=== PATIENT | male | born 1965 | race Caucasian/White ===

== ENCOUNTER 2017-03-14 19:42 | Emergency (ER) | payer MEDICAID ==
[2017-03-15 01:23] VITALS: BP 148/89
== END 2017-03-15 01:23 | disposition home or self-care (01) ==
LOC: ED 19:42
DX: S61.213A Laceration without foreign body of left middle finger without damage to nail, initial encounter (principal); W23.0XXA Caught, crushed, jammed, or pinched between moving objects, initial encounter; Y93.89 Activity, other specified; Y92.89 Other specified places as the place of occurrence of the external cause; Y99.8 Other external cause status
CPT/HCPCS: 90715; J0690

== ENCOUNTER 2017-03-16 16:11 | Emergency (ER) | payer OTHER, MEDICAID ==
[~2017-03-16] VITALS: Ht 165.1 cm; Wt 83.5 kg
[2017-03-16 16:33] VITALS: BP 151/62
== END 2017-03-16 18:35 | disposition home or self-care (01) ==
LOC: ED 16:11
DX: S61.213D Laceration without foreign body of left middle finger without damage to nail, subsequent encounter (principal); R03.0 Elevated blood-pressure reading, without diagnosis of hypertension; X58.XXXD Exposure to other specified factors, subsequent encounter

== ENCOUNTER 2017-03-19 16:34 | Emergency (ER) | payer OTHER, MEDICAID ==
[~2017-03-19] VITALS: Ht 162.6 cm; Wt 83.5 kg
[2017-03-19 16:51] VITALS: BP 183/95
== END 2017-03-19 19:00 | disposition home or self-care (01) ==
LOC: ED 16:34
DX: S67.197D Crushing injury of left little finger, subsequent encounter (principal); X58.XXXD Exposure to other specified factors, subsequent encounter

== ENCOUNTER 2017-03-21 10:07 | Emergency (ER) | payer OTHER, MEDICAID ==
[2017-03-21 10:24] VITALS: BP 144/86
== END 2017-03-21 11:58 | disposition home or self-care (01) ==
LOC: ED 10:07
DX: S61.217D Laceration without foreign body of left little finger without damage to nail, subsequent encounter (principal); X58.XXXD Exposure to other specified factors, subsequent encounter
CPT/HCPCS: A4570

== ENCOUNTER 2019-02-09 17:21 | Inpatient (IN) | payer OTHER ==
[~2019-02-09] VITALS: Ht 165.1 cm; Wt 78.0 kg
[2019-02-09 17:28] VITALS: Ht 165.1 cm; Wt 78.0 kg
--- NOTE | 2019-02-09 17:45 | NUR ---
SON BRINGS INDAD FOR C/O NAUSEA/VOMITING/DIARRHE AAND UPSET STOMACH X [address] FOOD. PT ST ON MONITOR AT 119, DENIES CP OR SOB, BUT DOES REPORT ANXIETY. PT DOES ADMIT TO DRINKING ETOH 1 BEER A DAY AND DRINKING A TEQUILA SHOT TO FEEL BETTER. TEACHING DONE ON ETOH ABUSE. RESP EVEN AND UNLABORED, ON RA @99% SKIN W/D/I. PALE IN COLOR, DENIES ANY ACUTE BLEEDING. WAIITNG FOR MSE.
--- NOTE | 2019-02-09 18:15 | NUR ---
DR FRANCO IN ROOM FOR EXAM.
--- NOTE | 2019-02-09 18:37 | NUR ---
IV SL X 2 , IV FLUIDS STARTED ORDERED.
[2019-02-09 18:54] LABS: BASOPHIL % 0.3 % (0-2); PLATELET COUNT 181 x10^3mcL (130-400)
[2019-02-09 18:56] LABS: RED CELL DISTRIBUTION WIDTH 20.8 % (11.5-14.5)
[2019-02-09 19:17] LABS: ALKALINE PHOSPHATASE 135 U/L (46-116); ALT/SGPT 57 U/L (16-63); AST/SGOT 66 U/L (15-37); BILIRUBIN TOTAL 0.7 mg/dL (0.20-1.00); CALCIUM 7.9 mg/dL (8.5-10.1); CARBON DIOXIDE 13.6 mmol/L (21-32); CHLORIDE SERUM 94 mmol/L (98-107); CREATININE SERUM 1.3 mg/dL (0.7-1.3); GFR1 > 60 mL/min; POTASSIUM SERUM 4.1 mmol/L (3.5-5.1); SODIUM SERUM 135 mmol/L (136-145); T3 TOTAL 0.51 ng/mL; TOTAL PROTEIN, SERUM 6.4 g/dL (6.4-8.2)
[2019-02-09 19:21] LABS: ALBUMIN 2.8 g/dL (3.4-5.0); GLUCOSE SERUM 595 mg/dL (74-106)
--- NOTE | 2019-02-09 19:21 | NUR ---
REPORT RECIEVED FROM EDIL JARRELL. PT A&0 X4, SITTING IN POSITION OF COMFORT. FAMILY AT BEDSIDE. CALL LIGHT W/IN REACH. NAD NOTED AT THIS TIME. WILL CONTINUE TO MONITOR.
[2019-02-09 19:40] LABS: rbc morphology (normal/abnorm) ABNORMAL (NORMAL)
[2019-02-09 19:41] LABS: CK-MB 1.7 ng/mL (0-3.6); FREE T4 0.83 ng/dL (0.76-1.46); FREE THYROXINE INDEX 1.8 ug/dL (1.4-4.5)
[2019-02-09 19:55] LABS: C REACTIVE PROTEIN < 0.2 mg/dL (<=0.9)
--- NOTE | 2019-02-09 20:20 | NUR ---
SANDOSTATIN DRIP STARTED AT 50MCG/HR PER MD ORDER
--- NOTE | 2019-02-09 20:24 | NUR ---
ICU REQUESTS TO CALL BACK IN 10MIN TO GIVE REPORT
--- NOTE | 2019-02-09 20:31 | NUR ---
REPORT GIVEN TO CHIQUI JARRELL IN ICU
[2019-02-09 21:22] VITALS: BP 117/64
--- NOTE | 2019-02-09 21:30 | NUR ---
PT OFF FLOOR FOR CT. CONNECTED TO [place] MONITOR AND O2 TANK. CHRYSTAL FLORIAN OFF FLOOR WITH PT.
--- NOTE | 2019-02-09 21:40 | NUR ---
[facility] WITH THE DX OG LOWER GI BLEEDING/DIABETIC KETOACIDOSIS, PT ALERT AND ORIENTED, SKIN WARM AND DRY TO TOUCH. RESPIRATION EVEN AND UNLABORED. PLACED COMFORTABLY IN BED. VITAL SIGNS TAKEN AND RECORDED WITH RHYTHM OF SINUSTACCHYCARDIA AT 112/MIN. PATIENT CLAIMED OF ABDOMINAL PAIN /10, PT ON SANDOSTATIN DRIP, IVF NS BOLUS 1L, 1ST BOTTLE ONGOING. STRATED ON INSULIN DRIP AT 8UNITSPER PROTOCOL . WILL CONTINUE TO MONITOR.
[2019-02-09 21:50] VITALS: BP 126/79
--- NOTE | 2019-02-09 22:00 | NUR ---
PT BACK ON FLOOR FROM CT. PT TOLERATED WELL, AND CONNECTED TO SUPERVISOR COATING.
[2019-02-09 22:10] LABS: CHOLESTEROL/HDL RATIO 3.3
[2019-02-09 22:29] LABS: microscopic required? NO
[2019-02-09 22:30] VITALS: BP 129/76
[2019-02-09 22:35] LABS: UA SPECIFIC GRAVITY 1.015 (1.005-1.035); urine erythrocyte NEGATIVE (NEGATIVE)
[2019-02-09 23:30] VITALS: BP 118/64
--- NOTE | 2019-02-09 23:59 | NUR ---
LAB AT BEDSIDE FOR BLOOD DRAW.
[2019-02-10] VITALS (12 sets, daily range): BP systolic 98–186; BP diastolic 48–104
--- NOTE | 2019-02-10 00:16 | NUR ---
CT SCAN OF THE ABOMEN WITHOUT CONTRAT DONE. USES URINAL FOR BLADDER ELEIMINATION. URINE SPECIMEN COLLECTD FOR UA AND SENT TO LAB. KEPT CLEAN ANBD DRY. WILL CONTINUE TO MONITOR.
--- NOTE | 2019-02-10 00:29 | NUR ---
PT H&H CAME BACK LOW. HGB: 6.1, HCT: 18.4. DR. AGUILAR MADE AWARE. 1 UNIT OF PRBC WILL BE ORDERED.
[2019-02-10 00:40] LABS: CALCIUM 6.6 mg/dL (8.5-10.1); CARBON DIOXIDE 17.4 mmol/L (21-32); CHLORIDE SERUM 110 mmol/L (98-107); CREATININE SERUM 0.9 mg/dL (0.7-1.3); GFR1 > 60 mL/min; GLUCOSE SERUM 337 mg/dL (74-106); POTASSIUM SERUM 4.6 mmol/L (3.5-5.1); SODIUM SERUM 142 mmol/L (136-145)
--- NOTE | 2019-02-10 00:41 | NUR ---
RT AT BEDSIDE FOR EKG.
--- NOTE | 2019-02-10 00:45 | NUR ---
PAGE GATE DR. AGUILAR TO SIGN CONSENT FOR BLOOD TRANSFUSION.
[2019-02-10 00:48] LABS: rbc morphology (normal/abnorm) ABNORMAL (NORMAL)
--- NOTE | 2019-02-10 01:00 | NUR ---
HGB-6.1 DR FOX SAYED ERNESTO MADE AWARE WITH ORDER FOR TYPE AND CROSSMATCH 1UNIT PRBC AND TRANSFUSE. PATIENT SIGNEDCONSENT FOR BLOOD TRANSFUSION.
--- NOTE | 2019-02-10 01:30 | NUR ---
CALLED DR. AGUILAR AGAIN TO COME SIGN BLOOD TRANSFUSION FORM.
--- NOTE | 2019-02-10 02:35 | NUR ---
1 UNIT OF PRBC GIVEN AFTER VERIFICATION BY THE CHARGE NURSE RN. WILL CONTINUE TO MONITOR.
--- NOTE | 2019-02-10 04:20 | NUR ---
LAB AT BEDSIDE FOR BLOOD DRAW.
--- NOTE | 2019-02-10 04:43 | NUR ---
SA=[id number] YYU=[id number], DR DOMINIQUE OROZCO MADE AWARE , AWAITNG FOR NEW ORDER.
--- NOTE | 2019-02-10 04:50 | NUR ---
1 UNIT PRBC COMPLETED.NOADVERSEREACTION NOTED.
[2019-02-10 05:12] LABS: CALCIUM 6.5 mg/dL (8.5-10.1); CARBON DIOXIDE 23.9 mmol/L (21-32); CHLORIDE SERUM 111 mmol/L (98-107); CREATININE SERUM 0.7 mg/dL (0.7-1.3); GFR1 > 60 mL/min; GLUCOSE SERUM 225 mg/dL (74-106); POTASSIUM SERUM 4.3 mmol/L (3.5-5.1); SODIUM SERUM 144 mmol/L (136-145)
--- NOTE | 2019-02-10 05:23 | NUR ---
BLOOD SUGAR-189MG/DL,IVF CHANGED TOR5 1/2NS AT 250ML/HR PER PROTOCOL.
--- NOTE | 2019-02-10 06:25 | NUR ---
BLOOD SGUAR CHECK DONE 225MG/SL,IVF DECREASED TO 150ML/HR PER PROTOCOL.TROP LEVEL-0.455, DR AGUILAR WAS PAGED AWAITNG FOR RETURN CALL.
--- NOTE | 2019-02-10 07:08 | NUR ---
TROPONIN LEVEL-0.455, DR WEIR AWARE WITH ORDER EKG, PT DENIES ANY CHEST PAIN/DISCOMFORT ATTHIS THIS TIME.
--- NOTE | 2019-02-10 07:15 | NUR ---
REPORT RECEIVED FROM CHRYSTAL FLORIAN. PATIENT AWAKE, NO DISTRESS NOTED. IV TO LFA WITH D5 1/2 NS INFUSING 150 ML/HR. RFA WITH INSULIN 8 UNITS/HR PER DKA PROTOCOL AND SANDOSTATIN 25 ML/HR. ANION GAP 9.1, CLOSE X1, DR. WEIR AWARE. HOURLY GLUCOSE CHECKS, LAST 225 AT 0630 AM PER CHRYSTAL FLORIAN. BED LOW, CALL LIGHT WITHIN REACH. WILL MONITOR.
--- NOTE | 2019-02-10 07:15 | NUR ---
SHIFT ASSESSMENT PERFORMED AND DOCUMENTED.
--- NOTE | 2019-02-10 07:42 | NUR ---
BS 179, ADJUSTED INSULIN TO 4U/HR PER DKA PROTOCOL
[2019-02-10 08:32] LABS: CALCIUM 6.4 mg/dL (8.5-10.1); CARBON DIOXIDE 25.1 mmol/L (21-32); CHLORIDE SERUM 111 mmol/L (98-107); CREATININE SERUM 0.6 mg/dL (0.7-1.3); GFR1 > 60 mL/min; GLUCOSE SERUM 181 mg/dL (74-106); POTASSIUM SERUM 3.7 mmol/L (3.5-5.1); SODIUM SERUM 144 mmol/L (136-145)
--- NOTE | 2019-02-10 09:00 | NUR ---
DR. LÓPEZ AT BEDSIDE EVALUATING PATIENT. PLAN FOR REGLAN AND EGD, DR. LÓPEZ TO PLACE ORDERS.
--- NOTE | 2019-02-10 10:00 | NUR ---
DR. LÓPEZ AT BEDSIDE PERFORMING EGD.
[2019-02-10 10:28] LABS: rbc morphology (normal/abnorm) ABNORMAL (NORMAL)
--- NOTE | 2019-02-10 10:45 | NUR ---
PRICING INTERN AT BEDSIDE DOING ECHO
--- NOTE | 2019-02-10 10:45 | NUR ---
PATIENT'S ANION GAP NOW 8, CLOSED X2. CHARGE NURSE CHERYL INFORMED. AWAITING ORDERS PER DKA PROTOCOL.
--- NOTE | 2019-02-10 11:25 | NUR ---
DR HESTER AT BEDSIDE TO ASSESS PATIENT. UPDATES PROVIDED BY NURSING.
--- NOTE | 2019-02-10 11:39 | NUR ---
DR. ALCALA AND DR. WEIR AT BEDSIDE TO EVALUATE PATIENT.
--- NOTE | 2019-02-10 11:53 | NUR ---
SHIFT ASSESSMENT PERFORMED AND DOCUMENTED. FAMILY AND SOCIAL WORK AT BEDSIDE. PATIENT IN NO DISTRESS. D51/2NS 150 ML/HR INFUSING TO LFA WITHOUT COMPLICATIONS. SANDOSTATIN 25 ML/HR AND INSULIN 4 U/HR PER DKA PROTOCOL INFUSIONING TO RFA. BED LOW, CALL LIGHT WITHITN REACH. WILL MONITOR.
--- NOTE | 2019-02-10 12:04 | NUR ---
CHRYSTAL KC, DISCONTINUED INSULIN DRIP AND D51/2NS PER DKA PROTOCOL.
--- NOTE | 2019-02-10 12:45 | NUR ---
BLOOD TRANSFUSION STARTED PER MD ORDER. VSS TEMP 98.6, HR 97, BP 109/55, RR 19, O2 SAT 100% ON 2LNC. PATIENT IN NO DISTRESS, EATING LUNCH, FAMILY AT BEDSIDE. WILL MONITOR. INITIAL RATE 100 ML/HR.
--- NOTE | 2019-02-10 13:02 | NUR ---
15 MINUTE CHECK ON BLOOD TRANSFUSION, VSS TEMP 99.1, HR 94, BP 101/52, RR 17, O2 SAT 100% ON 2LNC, NO DISTRESS NOTED. FAMILY AT BEDSIDE. INFUSION INCREASED TO 120 ML/HR.
--- NOTE | 2019-02-10 14:30 | NUR ---
ASSISTED PATIENT TO BED SIDE COMMODE, LARGE LOOSE BM, DARK IN COLOR. CHANGED GOWN AND LINENS. POSITIONED PATIENT FOR COMFORT. NO OTHER NEEDS AT THIS TIME. WILL MONITOR.
--- NOTE | 2019-02-10 15:30 | NUR ---
PATIENT'S BLOOD TRANSFUSION COMPLETE. TEMP 98.8, HR 98, BP 103/53, RR 19, O2 SAT 100% ON 2LNC. NO DISTRESS NOTED.
--- NOTE | 2019-02-10 16:10 | NUR ---
CALLED REPORT TO CHRYSTAL BLAS ON , PATIENT BEING TRANSFERRED TO 201B. PATIENT WITH SANDOSTATIN INFUSING TO RFA. IV TO LFA PATENT. PLACED ON TELE 13 AND WILL TRANSFER VIA WHEELCHAIR.
--- NOTE | 2019-02-10 17:35 | NUR ---
02/10/19, Time: 1700: Patient received in wheelchair. Ambulatory to bed. Alert and oriented x 4. Cape Verdean speaking. No signs of distress. Respiration even and unlabored. No C/O pain. Will continue to monitor. Call light within reach.
--- NOTE | 2019-02-10 17:56 | NUR ---
RECIEVED REPORT OF PATIENT WITH GI BLEED. HE HAS HAD A UPPER GI AND VARICES BANDED AND WITH CLIP AND NO ACTIVE BLEEDING AT THIS TIME. IV INTACDT AND PATIET HAS LOTS OFF FAMILY AT BEDSIDE. PATIENT IS THE FATHER OF FIVE AND THE MIDDLE ADULT SON AT BEDSIDE AND INTERPRETIN AT THIS TIME. PATIENT HAS SOME WEAKNESS AND STILL IS FEELING THE MEDICATION OF GI LABS SEDATION. PATIENT AHS RECEIVED TWO UNITS OF BLOOD AND PATIENT HAS HAS 6.7/20 AND LAST BLOOD SUGAR ON TRANSFER AT 191. PATIENT ON LANTUS AND HAS BEEN NOT TREATING HIS DIABETES AT HOME AND HAS HISTORY OF HIS MOTHER HAVING DIABETES. HE IS A WORKER IN A [employer] AND HAS BEEN FOR 30 YEARS, HE IS AMBULATORY BUT STILL SLOW GAIT. PATIENT HAS BEEN ON SANDOSTATIN CONTINUOUS DRIP AND AT 25ML AT THIS TIME. PATIENT HAS HX OF CHRONIC ALCOHOL ABUSE. ON LACTULOSE AND HIS AMMONIA LEVEL IS SLOWLY IMPROVING. VITAS ARE STABLE.
--- NOTE | 2019-02-10 18:29 | NUR ---
BLOOD SUGAR AT TAKEN AND COVERAGE WAS GIVEN. IV FLUIDS IN PLACE AND PATIENT SEEMS STILL MEDICATED AND TIRED. TOLERATED THE DIET OFFERED. FAMILY IS VERY SUPPORTIVE WITH CARE.
--- NOTE | 2019-02-10 19:30 | NUR ---
RECEIVED PT RESTING IN BED, NO ACUYE DISTRESS NOTED. PT ADMITTED INITIALLY TO ICU FOR DKA/GI BLEED, RECEIVED EGD WITH VARICE BANDING, PT PREVIOUSLY ON INSULIN GTT, ACCUCHECKS ACHS, BLOOD SUGAR STILL HIGH, MANAGED ON REG HUM SLIDING SCALE. PT DENIES BLOOD IN STOOL CURRENTLY, REPORTING DARK STOOL. PT ON LACTULOSE FOR HIGH AMMONIA. PT RECEIVED 2 UNITS PRBC'S IN ICU, NO NEW H/H ORDERED, WILL PAGE DR ROBLERO. PT REPORTS FEELING MUCH BETTER AFTER THE BLOOD, PT LONG HISTORY OF ALCOHOLISM, PER PT HE DRINKS 1-40OZ BEER THURSDAY-THU, AND PT REPORTS DRINKING HEAVIER ON THE WEEKENDS. PT REPORTS HIS LAS BEER YESTERDAY AT 2PM. NO SIGNS OF HAND TREMORS, PT AOX4, NO EKGS CHANGES AT THIS TIME. WILL OBTAIN ORDERS FOR ALCOHOL WITHDRAWAL PROTOCOL. PT DENIES SEIZURES IN THE PAST. PT STILL ON SANDOSTATIN AT 25ML/HR. NO REDNESS, SWELLING OR PAIN NOTED AT SITE. ALL COMFORT AND SAFETY MEASURES PROVIDED FOR, CALL LIGHT WITHIN REACH, BED IN LOWEST POSITION, WILL CONTINUE TO MONITOR.
--- NOTE | 2019-02-10 20:06 | NUR ---
PHONED CALL PHONE DR ROBLERO, INFORMED HER PT RECEIVED 2 UNITS OF BLOOD IN ICU, STARTED AT 12PM AND COMPLETED AROUND 4PM, LATEST H/H FROM 0800. PER DR. ROBLERO, WILL PUT IN STAT CBC TO ASSESS PT H/H. WILL CONTINUE TO MONITOR.
[2019-02-10 20:37] LABS: BASOPHIL % 0.7 % (0-2)
[2019-02-10 20:50] LABS: RED CELL DISTRIBUTION WIDTH 18.1 % (11.5-14.5)
[2019-02-10 20:51] LABS: PLATELET COUNT 56 x10^3mcL (130-400)
--- NOTE | 2019-02-10 22:54 | NUR ---
PHONED DR. ROBLERO IN REGARDS TO PT HX OF ALCOHOLISM AND NO ORDERS FOR ALCOHOL PROTOCOL AT THIS TIME. PER DR. ROBLERO, WILL INPUT THE ORDERS NOW. PT STATES HIS LAST BEER WAS YESTERDAY AND 2PM. PT REPORTS DRINKING EVERYDAY. 40OZ BEER X1 MON-FRI AND HEAVIER DURING THE WEEKEND. NO S/S OF HAND TREMORS, NO EKG CHANGES (PT NSR 90), AOX4. WILL WAIT FOR ORDERS. CALL LIGHT WITHIN REACH, BED IN LOWEST POSITION, WILL CONTINUE TO MONITOR.
[2019-02-11 00:15] VITALS: BP 101/56
--- NOTE | 2019-02-11 05:05 | NUR ---
PT RESTED IN INTERVALS DURING SHIFT, NO ACUTE DISTRESS NOTED. PT REPORTS GETTING UP TO THE RESTROOM ONE TO HAVE A BM, REPORTS IT WAS LOOSE DIARRHEA WITH SOME BLACK PIECES, DENIES BLOOD. PT REMAINS ON NS @ 100ML/HR, NO REDNESS, SWELLING OR PAIN NOTED. PT REMAINS WITH SANDOSTATIN DRIP AT 25ML/HR. PT DENIES N/V/D DURING SHIFT. PT REPORTS SORENESS/TIGHTNESS IN LEFT HAND, DENIES PAIN. BLOOD SUGAR 268 LAST NIGHT, GAVE 9 UNITS, BLOOD SUGAR THIS MORNING= 188, GAVE 3 UNITS. PROVIDED DM EDUATION, ALCOHOL WITHDRAWAL PROTOCOL. PT VERBALIZES UNDERSTANDING. ALL COMFORT AND SAFETY MEASURES PROVIDED FOR, CALL LIGHT WITHIN REACH, BED IN LOWEST POSITION, WILL CONTINUE TO MONITOR.
[2019-02-11 05:19] VITALS: BP 105/54
[2019-02-11 06:53] LABS: BASOPHIL % 0.8 % (0-2)
[2019-02-11 06:55] LABS: PLATELET COUNT 82 x10^3mcL (130-400); RED CELL DISTRIBUTION WIDTH 18.4 % (11.5-14.5)
[2019-02-11 07:05] LABS: CALCIUM 6.3 mg/dL (8.5-10.1); CARBON DIOXIDE 25.8 mmol/L (21-32); CHLORIDE SERUM 107 mmol/L (98-107); CREATININE SERUM 0.7 mg/dL (0.7-1.3); GFR1 > 60 mL/min; GLUCOSE SERUM 174 mg/dL (74-106); MAGNESIUM 1.8 mg/dL (1.8-2.4); PHOSPHOROUS 1.6 mg/dL (2.5-4.9); POTASSIUM SERUM 3.4 mmol/L (3.5-5.1); SODIUM SERUM 141 mmol/L (136-145)
--- NOTE | 2019-02-11 07:38 | NUR ---
RECEIVED HAND OFF REPORT FROM ELLA JARRELL. PATIENT AWAKE AND ALERT X4, SYRIAN SPEAKING MAINLY WITH SOME ETHIOPIAN. NOT COMPLAINING OF PAIN OR DISCOMFORT. RN REPORT STATES THAT PATIENT IS HEAVY DRINKER, ORDERS FOR ALCOHOL WITHDRAWL IN BUT NO ORDER FOR SEZURE PRECAUTIONS WILL FOLLOW UP WITH AUTOMOBILE ACCESSORIES INSTALLER. TELE MONITOR #13 ON PATIENT, SHOWING NSR. PULSES ARE PALPABLE IN X4 EXTREMITIES, SWELLING NOTED TO LEFT HAND, LUNGS CTA NO COUGH. PATIENT REPORTING LOOSE STOOLS WITH SOME DARK SPOTS, PATIENT HAD EGD ON 02/10 WITH VARICEAL BANDING. IV TO RIGHT AC WITH NS AT 100 INFUSING. IV TO LEFT AC SALINE LOCKED FLUSHING WELL. AM LABS SHOWED K+ OF 3.4, WILL FOLLOW UP WITH AUTOMOBILE ACCESSORIES INSTALLER FOR COVERAGE. ORRIENTED PATIENT TO CALL LIGHT SYSTEM AND CALL IGHT WITHIN REACH, WILL CONTINUE TO MONITOR
[2019-02-11 07:57] VITALS: BP 125/66
--- NOTE | 2019-02-11 09:43 | NUR ---
ADMINISTERED MEDICAITON PER JUL. TE [employer] [facility] SPOKE WITH PATIENT AND JESENIA TO UPDATE ON PLAN OF CARE. PATIENT NO LONGER ON INSULIN DRIP. BLOOD GLOUCOSE MORE STABLE THIS AM. GI DR TO FOLLOW UP WITH EGD. CONTINUING TO MONITOR PATIENT AT THIS TIME. QUESTIONS FROM FAMILY ADDRESSED. WILL CONTINUE TO MONITOR. CALL LIGHT WITHIN REACH
[2019-02-11 11:30] VITALS: BP 118/70
--- NOTE | 2019-02-11 11:37 | NUR ---
Initial Nutrition Assessment: 201T/B Tim RUIZ IA HR Dx: DKA, lower GI Bleed PMHx: none PSHx: none Labs: BG 174H, K 3.4L, P 1.6L, TG 218H, A1C 12.3H, Ammonia 78H Meds: Ativan, cephulac, Colace, D 50%, ferrous sulfate, humulin, Librium, norco, zofran Diet: Full liquid PO Intake: (02/11) breakfast 100%, (02/10) dinner 50% Ht: 165.1 cm (65") Wt: 78 kg (172#) BMI: 28.6 kg/m2 Bed scale: 78 kg IBW: 136# (62 kg) %IBW: UBW: 170-172# Age: 53/M Food Allergies: NKFA Skin: intact Adonay: 20 Edema: none GI: S/P EGD, reporting dark stools, on lactulose Last BM: 02/09 Per H&P, Pt is a 53 Yo male, moderate to heavy alcoholic for 30 years, who was brought to the ER by his family from home for worsening generalized weakness, vomiting and diarrhea. RDN Visit (02/11): Patient was alert and oriented with son and at bedside. Diabetes diet education was provided. Patient's son helped with Bulgarian translation. Patient's diet has been changed to CCHO by Dr. Mcnair. Per progress note (02/10), CT Abd/pelvis: No evidence of colitis. There is hepatic cirrhosis. There is a right renal probable cyst. The stomach is very distended with ingested material and gas. Mildly prominent fluid-filled small bowel loops may represent enteritis. There is mild colonic diverticulosis. The bladder is very distended. There is a left inguinal hernia. Patient is new onset DM. Problem with: N/V/D/C: constipation Problems with: Chewing/Swallowing: none Current appetite: good Recent wt change: none %wt change: n/a Vitamin/Supplement use: no Special diet at home: regular Physical activity: walking Nutrition education given: Diabetes diet education was provided using [facility] handout on 'Type 2 Diabetes Nutrition Therapy'. Concepts like high fiber diet, label reading, types of carbohydrates and portion control were discussed. Patient verbalized understanding and did not have any questions at this time. Food-drug interactions: Colace- high fiber w/2219-4772 ml fluids Education given: yes Estimated Nutritional Needs Based on current body weight 78 kg Energy: 1058-0784 kcal/d (25-30 kcal/kg) Protein: 78-94 g/d (1.0-1.2 g/kg) - preserve LBM, GI Bleed, possible cirrhosis Fluid: 1250-1744 ml/d (1 ml/kcal) or per doctor Nutrition Diagnosis 1. Impaired nutrient utilization related to endocrine and hepatic dysfunction as evidenced by A1C:12.3, Ammonia: 78 2. Food and nutrition related knowledge deficit related to lack of prior nutrition education as evidenced by A1C: 12.3 Intervention 1. Recommend continuing CCHO diet. 2. DM diet education has been provided. Monitor/Evaluate Goal: PO intake at least 75% of estimated needs Monitor: PO intake, Labs, GI function F/U in 3-5 days as moderate risk 02/14-
--- NOTE | 2019-02-11 11:37 | NUR ---
1. Recommend continuing [facility] diet. 2. DM diet education has been provided.
--- NOTE | 2019-02-11 12:10 | NUR ---
OLEKSANDR FROM PT ASSESSED PATIENT AND CLEARED PATIENT TO WALK IN HALLWAYS WITH FAMILY. PATIENT GAIT IS STEADY AND ABLE TO FOLLOW COMMANDS. BLOOD GLUCOSE RESULT WAS 235. ADMINISTERED 6U REGULAR INSULIN PER SLIDING SCALE.
--- NOTE | 2019-02-11 13:32 | NUR ---
ADMINSTERED MEDICATION PER MAR. EDUCATED PATIENT AND SON ABOUT MEDICATIONS, PATIENT STATES HE IS FEELING WELL WITH NO SIGNS OF ALCOHOL WITHDRAWL. TOLLERATING DIET CHANGE TO [facility] WELL. CALL LIGHT WITHIN REACH
[2019-02-11 16:57] VITALS: BP 109/62
--- NOTE | 2019-02-11 17:21 | NUR ---
ADMINISTERED MEDICATION PER MAR, BLOOD GLUCOSE WAS 185, ADMINISTERED 3UNITS INSULIN, VERIFIED BY JENNI JARRELL. FAMILY AT BEDSIDE. CALL LIGHT WITHIN REACH
--- NOTE | 2019-02-11 19:40 | NUR ---
RECEIVED PT FROM AM NURSE. PT SITTING ON BED WITH FAMILY AT BEDSIDE. PT AAOX4, ABLE TO MAKE NEEDS KNOWN. PT ON TELE#13 READING SR, HR 75. DENIES CP/PRESSURE AT THIS TIME. PALPABLE PULSES TO ALL EXTREMETIES. TRACE EDEMA TO BUE NOTED. LUNG SOUNDS CTA. BREATHING EVEN AND UNLABORED ON RA. NO ACUTE DISTRESS NOTED. NO SOB NOTED. ABD SOFT AND NONDISTENDED. ACTIVE BS X4 QUAD. LAST BM 02/11/19. PT STATES STOOL WERE LOOSE AND DARK IN COLOR. DENIES N/V. VOIDS FREELY BRP. GENERALIZED WEAKNESS. AMB WITH ASSIST. NS RUNNING TO RFA AT 40ML/HR. IV SL TO LFA FLUSHING WELL. SITES FREE FROM REDNESS AND SWELLING. BED AT LOWEST SETTING. SIDE RAILS X2 UP. CALL LIGHT WITHING REACH. WILL CONTINUE TO MONITOR.
[2019-02-11 20:38] VITALS: BP 116/57
--- NOTE | 2019-02-11 20:56 | NUR ---
CALLED DR ROBLERO REGARDING PT POTASSIUM OF 3.4 [address] PER DR WILL WAIT FOR AM LABS. NO NEW ORDERS RECEIVED. WILL CONTINUE TO MONITOR.
--- NOTE | 2019-02-12 00:21 | NUR ---
PT LAYING DOWN IN BED WITH EYES CLOSED. BREATHING EVEN AND UNLABORED ON RA. NO ACUTE DISTRESS NOTED. IV TO RFA INFUSING NS AT 40ML/HR. BED AT LOWEST SETTING. SIDE RAILS X2 UP. CALL LIGHT WITHING REACH. WILL CONTINUE TO MONITOR.
[2019-02-12 05:40] VITALS: BP 98/48
--- NOTE | 2019-02-12 06:14 | NUR ---
PT SLEPT AT INTERVALS THROGHOUT THE NIGHT. BREATHING EVEN AND UNLABORED ON RA. NO SIGNIFICANT CHANGES DURING THE NIGHT. ALL NEEDS ASSESSED AND ATTENDED. IV TO RFA INFUSING NS AT 40ML/HR. SITE FREE FROM REDNESS AND SWELLING. BED AT LOWEST SETTING. SIDE RAILS X2 UP. CALL LIGHT WITHING REACH. WILL ENDORSE CARE TO AM NURSE.
[2019-02-12 06:50] LABS: BASOPHIL % 0.6 % (0-2); CALCIUM 6.3 mg/dL (8.5-10.1); CARBON DIOXIDE 26.5 mmol/L (21-32); CHLORIDE SERUM 109 mmol/L (98-107); CREATININE SERUM 0.7 mg/dL (0.7-1.3); GFR1 > 60 mL/min; GLUCOSE SERUM 163 mg/dL (74-106); POTASSIUM SERUM 3.2 mmol/L (3.5-5.1); SODIUM SERUM 142 mmol/L (136-145)
[2019-02-12 07:20] LABS: RED CELL DISTRIBUTION WIDTH 18.2 % (11.5-14.5)
[2019-02-12 07:21] LABS: PLATELET COUNT 91 x10^3mcL (130-400)
--- NOTE | 2019-02-12 07:43 | NUR ---
RECEIVED HAND OFF REPORT FROM NIGHT NURSE, PATIENT RESTING AT THIS TIME, BREATHINGR EGULAR, EVEN, AND UNLABORED. NS RUNNING TO RIGHT FOREARM AT 40MLS/H. NO ACUTE DISTRESS NOTED. WILL CONTINUE TO MONITOR
[2019-02-12 08:15] VITALS: BP 104/60
--- NOTE | 2019-02-12 09:20 | NUR ---
ADMINISTERED MEDICATION PER MAR, PATIENT POTASSIUM WAS LOW THIS MORNING, COVERED BY PO TABLETS. TE TUNNEL KILN FIRER ROUNDED ON PATIENT AND INFORMED PATIENT THAT WE ARE WAITING FOR CLEARANCE FROM DR LÓPEZ FOR THE GI PROCEDURE BEFORE PATIENT WAREHOUSE LOGISTICS COORDINATOR BE DISCHARGED. PATIENT ALERT AT THIS TIME WITH NO PAIN, SITTING ON SIDE OF BED, ENCOURAGED TO WALK IN HALLWAYS WITH FAMILY. CALL LIGHT WITHIN REACH, WILL CONTINUE TO MONITOR
[2019-02-12] MEDS ORDERED: BIAL PO (09:55)
--- NOTE | 2019-02-12 09:55 | NUR ---
DR LÓPEZ SAW PATIENT YESTERDAY BUT DID NOT UPDATE CARE TEAM THAT HE IS RECOMMENDING PATIENT IS CLEAR FOR DISCHARGE, TE NUCLEAR EQUIPMENT RESEARCH ENGINEER AWARE. DISCHARGE IN PROCESS
[2019-02-12] MEDS ORDERED: AMOXICILLIN500 MG PO (09:56)
[2019-02-12] MEDS ORDERED: NATURAL IRON65 MG PO (09:57)
[2019-02-12] MEDS ORDERED: GOOD SENSE OMEP20 MG PO (09:57)
[2019-02-12] MEDS ORDERED: IND10 PO (09:57)
[2019-02-12] MEDS ORDERED: COLACE100 MG PO (09:58)
[2019-02-12] MEDS ORDERED: GLU500 PO (09:58)
[2019-02-12] MEDS ORDERED: ACCU-CHEK1 EAC2 MC (09:58)
--- NOTE | 2019-02-12 10:09 | NUR ---
CALLED AND SPOKE TO AND MADE HIM AWARE PT IS BEING DISCHARGE HOME TODAY, NEW ORDER RECEIVED FOR PT TO FOLLOW UP WITH HIM IN 3 TO 4 WEEKS.
[2019-02-12 10:17] VITALS: BP 104/60
--- NOTE | 2019-02-12 11:13 | NUR ---
SAT DOWN WITH PATIENT AND FAMILY TO GIVE DISCHARGE TEACHING. REVIEWED HOSPITAL STAY WITH PATIENT AND FAMILY AND REVIEWED FINDING FROM EGD AND THAT DR LÓPEZ WANTS PATIENT TO FOLLOW UP WITH HIS OFFICE IN 3 WEEKS, SS WAS CONSULTED TO SET UP APPOINTMENT FOR PATIENT. PATIENT DOES NOT HAVE PCP BUT HAS PLANS TO FIND ONE, INSTRUCTED PATIENT OF IMPORTANCE OF FINDING A PCP TO DIRECT CARE. WITH NEW DIAGNOSIS OF DM, INSTRUCTED PATIENT ON HOW TO CHECK BLOOD SUGAR AND HOW OFTEN. DESIRE STATES HIS CHECKS HER SUGAR DAILY, INSTRUCTED PATIENT THAT HE SHOULD KEEP A LOG OF BLOOD SUGARS AND BLOOD PRESSURES TO TRACK HIS HEALTH. GAVE PATIENT PRESCRIPTIONS OF NEW MEDICATIONS AND REVIWED EACH WITH PATIENT. ADDRESSED ALL QUESTIONS THAT AROSE. REMOVED X2 IV FROM RIGHT AND LEFT FOREARM, CATHS INTACT. NO BLEEDING OR SWELLING. REMOVED TELE 13 AND TAKEN BACK TO TELE FARM LOAN INSPECTOR. PATIENT ESCORTED OFF FLOOR BY LINDA YOUSIF WITH ALL BELONGINGS
== END 2019-02-12 11:31 | disposition home or self-care (01) | DRG 432 ==
LOC: ED 17:21 → IC 19:47 → DU 19:47 → IC 20:42 → DU 02-10 16:50
PROVIDERS: Internal Medicine Gastroenterology; Specialist; ADMIT Internal Medicine
PROC: 06L38CZ Occlusion of Esophageal Vein with Extraluminal Device, Via Natural or Artificial Opening Endoscopic (ICD-10-PCS; principal; 2019-02-10 09:30)
PROC: 0DB78ZX Excision of Stomach, Pylorus, Via Natural or Artificial Opening Endoscopic, Diagnostic (ICD-10-PCS; 2019-02-10 09:30)
DX: K70.30 Alcoholic cirrhosis of liver without ascites (principal); I85.11 Secondary esophageal varices with bleeding; K28.4 Chronic or unspecified gastrojejunal ulcer with hemorrhage; E11.10 Type 2 diabetes mellitus with ketoacidosis without coma; I21.A1 Myocardial infarction type 2; D62 Acute posthemorrhagic anemia; K76.6 Portal hypertension; K31.89 Other diseases of stomach and duodenum; K52.9 Noninfective gastroenteritis and colitis, unspecified; F10.10 Alcohol abuse, uncomplicated; E86.0 Dehydration; Y90.0 Blood alcohol level of less than 20 mg/100 ml; Z91.14 Patient's other noncompliance with medication regimen; Z79.84 Long term (current) use of oral hypoglycemic drugs; Z71.41 Alcohol abuse counseling and surveillance of alcoholic; Z79.899 Other long term (current) drug therapy
CPT/HCPCS: 36600; 43235; 82962; 84439; 97116-GP; C9113; G0378; J0171; J1200; J1610; J1815; J2250; J2310; J2354; J2765; J3010; J3490; J7030; J7050; P9016; Q0163